=== PATIENT | male | born 1980 | race American Indian/Alaskan Native ===

== ENCOUNTER 2018-01-07 16:25 | Outpatient (CLI) | payer OTHER ==
--- NOTE | 2018-01-08 16:05 | Magnetic Resonance Report ---
MRA HEAD WITHOUT CONTRAST: 01/07/18 16:25:00 CLINICAL: Headache TECHNIQUE: Axial 3-D [id number] MR angiography of the [place] with review of axial source images. FINDINGS: Intact [place] with no aneurysm, stenosis or occlusion. Symmetric blood flow in the anterior, middle and posterior cerebral arteries. Normal basilar and vertebral arteries. The left vertebral artery is dominant. IMPRESSION: Normal study.
== END 2018-01-07 16:26 | disposition home or self-care (01) ==
LOC: MRI 16:25
PROVIDERS: ATTEND Otolaryngology
DX: H90.A32 Mixed conductive and sensorineural hearing loss, unilateral, left ear with restricted hearing on the contralateral side (principal); R51 Headache
CPT/HCPCS: 70544